=== PATIENT | male | born 1975 | race Caucasian/White ===

== ENCOUNTER 2018-11-28 05:37 | Day surgery (SDC) | payer OTHER ==
[~2018-11-28 05:37] MED LIST: CLINDAMYCIN 900 MG/D5W RTU 900 MG/50 ML RTUPB IV PRN; LACTATED RINGERS 1000 ML IV PRN; LIDOCAINE 0.5% INJ-PF (5 MG/ML) 50 ML SDV SUBCUT PRN
[2018-11-28] MEDS ORDERED: CLINDAMYCIN 900 MG/D5W RTU 900 MG/50 ML RTUPB IV ONE (06:03)
[2018-11-28] MEDS ORDERED: LIDOCAINE 2% INJ-PF (20 MG/ML) 10 ML AMPUL ONE (06:54)
[2018-11-28] MEDS ORDERED: HYDROMORPHONE HCL INJ/PF 2 MG/ML AMPULE ONE ×2 (06:54→17:58)
[2018-11-28] MEDS ORDERED: FENTANYL CITRATE INJ/PF 100 MCG/2 ML AMPUL ONE (06:54)
[2018-11-28] MEDS ORDERED: ACETAMINOPHEN 1,000 MG/100 ML RTUPB IV ONE (06:55)
[2018-11-28] MEDS ORDERED: MIDAZOLAM 2 MG/2 ML INJ ONE (06:55)
[2018-11-28] MEDS ORDERED: PROPOFOL INJ 200 MG/20 ML VIAL IV ONE (06:55)
[2018-11-28] MEDS ORDERED: MINERAL OIL (STERILE) 10 ML VIAL ONE (07:14)
[2018-11-28] MEDS ORDERED: BALANCED SALT IRRIG SOLN COMB2 15 ML BOTTLE ONE (07:14)
[2018-11-28] MEDS ORDERED: TOBRAMYCIN SULFATE/DEXAMETH OPH OINTMENT 3.5 GM ONE ×2 (07:15→15:32)
[2018-11-28] MEDS ORDERED: BUPIVACAINE HCL 0.5%-EPI 1:200000 INJ/PF 30 ML VIAL ONE (07:15)
[2018-11-28] MEDS ORDERED: BUPIVACAINE HCL 0.5%/EPI 1:200000 INJ 1.8 ML CARTRIDGE ONE (07:15)
[2018-11-28] MEDS ORDERED: OXYMETAZOLINE HCL 0.05% NASAL SPRAY 15 ML BOTTLE ONE (07:18)
[2018-11-28] MEDS ORDERED: ONDANSETRON HCL INJ/PF 4 MG/2 ML SDV ONE (08:15)
[2018-11-28] MEDS ORDERED: ROCURONIUM BROMIDE INJ 50 MG/5 ML VIAL IV ONE (08:15)
[2018-11-28] MEDS ORDERED: DEXAMETHASONE SOD PHOSPHATE INJ 4 MG/1 ML VIAL ONE (08:15)
[2018-11-28] MEDS ORDERED: SUCCINYLCHOLINE CHLORIDE INJ 200 MG/10 ML VIAL ONE (08:15)
[2018-11-28] MEDS ORDERED: FENTANYL CITRATE INJ/PF 100 MCG/2 ML AMPUL IV PRN ×3 (09:40)
[2018-11-28] MEDS ORDERED: PROMETHAZINE HCL INJ 25 MG/1 ML VIAL IV PRN ×2 (09:40→19:50)
[2018-11-28] MEDS ORDERED: MORPHINE SULFATE 10 MG/ML INJ IV PRN ×2 (09:40→19:48)
[2018-11-28] MEDS ORDERED: MEPERIDINE HCL/PF INJ 25 MG/1 ML DISP.SYRIN IV PRN (09:40)
[2018-11-28] MEDS ORDERED: DIPHENHYDRAMINE HCL 50 MG/ML VIAL IV PRN (09:40)
[2018-11-28] MEDS ORDERED: BACITRACIN ZINC OINTMENT 15 GM ONE (13:31)
[2018-11-28] MEDS ORDERED: METOCLOPRAMIDE HCL INJ/PF 10 MG/2 ML SDV ONE (16:22)
[2018-11-28] MEDS ORDERED: RINGERS SOLUTION,LACTATED 1,000 ML IV PRN (17:09)
[2018-11-28] MEDS ORDERED: PROMETHAZINE HCL INJ 25 MG/1 ML VIAL ONE (17:30)
[2018-11-28] MEDS ORDERED: OXYCODONE-ACETAMINOPHEN 5-325 MG TABLET PO PRN (17:33)
[2018-11-28] MEDS ORDERED: ONDANSETRON HCL INJ/PF 4 MG/2 ML SDV IV PRN ×2 (17:33→19:49)
[2018-11-28] MEDS ORDERED: OXYCODONE-ACETAMINOPHEN 5-325 MG TABLET ONE (17:49)
[2018-11-28] MEDS: OXYCODONE-ACETAMINOPHEN 5-325 MG TABLET PO PRN ×2 (19:55→23:55)
--- NOTE | 2018-11-28 22:02 | OPERATIVE REPORT E ---
Operative Report NAME: XAVIER SORIANO : 1975 AGE: 43Y DATE OF SURGERY: 11/28/2018 ROOM: 212 PREOPERATIVE DIAGNOSES: 1. CHRONIC RHINOSINUSITIS. 2. SINONASAL POLYP DISEASE. 3. NASAL SEPTAL DEVIATION, ACQUIRED. 4. NASAL DEFORMITIES, ACQUIRED. 5. BILATERAL NASAL VALVE COLLAPSE. 6. CHRONIC NASAL DYSPNEA. 7. BILATERAL INFERIOR TURBINATE HYPERTROPHY. 8. BILATERAL MIDDLE TURBINATE HYPERTROPHY. 9. NASAL SEPTAL SPUR. POSTOPERATIVE DIAGNOSES: 1. CHRONIC RHINOSINUSITIS. 2. SINONASAL POLYP DISEASE. 3. NASAL SEPTAL DEVIATION, ACQUIRED. 4. NASAL DEFORMITIES, ACQUIRED. 5. BILATERAL NASAL VALVE COLLAPSE. 6. CHRONIC NASAL DYSPNEA. 7. BILATERAL INFERIOR TURBINATE HYPERTROPHY. 8. BILATERAL MIDDLE TURBINATE HYPERTROPHY. 9. NASAL SEPTAL SPUR. OPERATION: 1. IMAGE GUIDANCE FUNCTIONAL ENDOSCOPIC SINUS SURGERY CONSISTING OF THE FOLLOWIN. BILATERAL MAXILLARY ANTROSTOMIES VIA BILATERAL TRANSNASAL RIGID SURGICAL ENDOSCOPY. 3. BILATERAL TOTAL ETHMOIDECTOMIES VIA BILATERAL TRANSNASAL RIGID SURGICAL ENDOSCOPY, WITH TISSUE REMOVAL. 4. BILATERAL FRONTAL SINUS SINUSOTOMIES VIA BILATERAL TRANSNASAL RIGID SURGICAL ENDOSCOPY, WITH TISSUE REMOVAL. 5. ENDONASAL FUNCTIONAL SEPTORHINOPLASTY WITH CARTILAGE GRAFTING OF THE UPPER AND LOWER CARTILAGES AND WITH NASAL TIP COMPLEX STABILIZATION. 6. BILATERAL INFERIOR TURBINATE REDUCTION USING AN INTRAMURAL CAUTERY WITH OUTFRACTURING. 7. BILATERAL MIDDLE TURBINATE REDUCTION. 8. BILATERAL FRONTAL SINUS RECESS PLACEMENT OF PROPEL CONTOUR STEROID-ELUTING STENTS. SURGEON: MISHA SALDAÑA D.O. ANESTHESIA: General endotracheal tube. ANESTHESIA STAFF: ANA Sena and ANA Geronimo ESTIMATED BLOOD LOSS: 50 mL FLUIDS: 1250 mL URINE OUTPUT: 1050 mL COMPLICATIONS: None. DRAINS: None. SPONGE COUNT: Verified. NEEDLE COUNT: Verified. MATERIALS FORWARDED SPECIMEN: 1. Bilateral ethmoid sinus tissue for rule out polyp disease. 2. Bilateral frontal sinus tissue for rule out sinus polyp disease. FINDINGS: 1. Nasal septal deviation involving bone and cartilage, and there was a large right nasal septal spur. 2. Severe bilateral nasal valve collapse. 3. Caudal septal cartilage margin with displacement into the left nasal vestibule with displacement of the left medial crura and medial crural footplate into the left nasal vestibule. 4. Dorsal hump involving bone and cartilage. 5. Inadequate nasal tip complex support with a bifid nasal tip area. 6. There was extensive sinonasal polyp disease noted, especially in the maxillary, ethmoid, and frontal sinus recess areas. 7. There was no sinonasal discharge noted. 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 The patient had been referred for and he complained of a 10+ year history of chronic rhinosinusitis symptoms. The patient is also with history of worsening nasal dyspnea with very difficult nasal airflow over the years. The patient had undergone CT sinus imaging with active sinus disease and polyp disease noted. The patient underwent clinic flexible endoscopy and extensive nasal evaluation. The patient was noted to be with severe nasal valve collapse with near complete collapse of his nasal passages. There was extensive discussion with the patient with regard to both functional septorhinoplasty and image guidance functional endoscopic sinus surgery, and the patient desired to undergo the recommended surgery under a singular anesthetic versus staging the surgeries, as he also only wanted to have to go through one recovery as well. The procedures and all of the risks and complications were discussed in detail with the patient. He voiced an understanding of the described surgical plan, agreed to proceed, and consent was obtained. PROCEDURE: The patient was taken to the main operating room and was placed on the operating room table in the supine position. Appropriate monitors were placed. Using mask and IV access, general anesthesia was induced. The patient was next transorally intubated without difficulty. The patient was then positioned and prepped for sinus and nasal surgery. The patient underwent a nasal examination with injection of local anesthetic with epinephrine. There were two Afrin-soaked neuro patties placed per nasal passage. At this point, the patient was prepped and draped in a sterile fashion for sinus and nasal surgery. The Fusion image guidance system was set up and tested appropriately before beginning the case. The Afrin-soaked neuro patties were removed and the patient underwent a left hemitransfixion incision with elevation of the mucoperichondrial and periosteal flaps without difficulty. The bony cartilaginous junction was identified and divided. The most deviated portions of septal cartilage and bone were removed. At this point, the caudal septal margin cartilage prominence was trimmed. There was a precise pocket created between the medial crural footplates. There was soft tissue that was debulked from between the medial crura and the medial crural footplates. There was a greater than 1.5 x 1.5 cm cartilaginous *------* that was preserved. At this point, the turbinate bipolar wand was used to make two passes in each inferior turbinate. Next, a Reyna elevator was used to outfracture each inferior turbinate. At this point, the image guidance functional endoscopic sinus surgery portion of the case was completed as follows. There was Marcaine with epinephrine that was used for intranasal injections in the area of the middle turbinate root. Sinus surgery was done with bilateral transnasal rigid surgical endoscopy and image guidance. There were also multiple sinus surgical instruments in the microdebrider system at a setting of 3000 RPM used throughout this portion of the case. The anterior portion of the middle turbinates was debulked. Next, the uncinate process was mobilized on each side and the maxillary antrostomies were performed without difficulty. The total ethmoidectomies were completed without difficulty, and tissue was sent for permanent pathology evaluation to rule out polyp disease. At this point, the frontal sinus balloon system was introduced and brought into position in the frontal sinus recess distribution and inflated to 12 atmospheres at multiple locations on each side. However, due to the extent of ethmoid polyp disease, there was concern for obstructing tissue and scarring taking place. Therefore, an intraoperative decision was made to perform bilateral frontal sinusotomies with surgical instrumentation. There were widely patent openings noted at this point bilaterally. This was followed by placement of one Propel Contour frontal sinus stent per side. Once complete, the sinus surgical instrumentation was withdrawn. At this point, the endonasal septorhinoplasty portion of the case was completed in the following manner. There were modified marginal incisions performed bilateral with elevation of the skin/soft tissue complex. There were precise pockets created for the extended alar fat grafts. The fat grafts were fashioned out of the previously harvested cartilage. Once complete, they were set in place. There were also endonasal dresser tender grafts placed, one per side. There was also dorsal contour work performed with dorsal rasping. Once complete, the alar fat grafts were fixed in place with 5-0 Prolene suture that was [id number] using bolsters overlying the internal and external nasal tissue. Once complete, all incisions were reapproximated with 5-0 Chromic suture. At this point, there was an incision made over each medial crural footplate. Next, a 5-0 Prolene suture was used as a [id number] base stabilizing suture. These incisions were reapproximated with Chromic suture as well. The patient next had one Merocel nasal pack placed per side. These were secured at the caudal aspect with 4-0 Prolene suture. At this point, the patient's nose was cleaned and dried, followed by placement of Mastisol and Steri-Strips. The patient was then returned to the anesthesia staff and was allowed to emerge from general anesthesia. The patient was extubated in the main operating room and was then transported to the post anesthesia recovery unit in stable condition. There were no complications. DICTATING PHYSICIAN: MISHA SALDAÑA D.O. [id number] PHY#: [id number] ID: [id number] JOB#: [id number] ACCT: [id number] cc:MISHA SALDAÑA D.O. >
[2018-11-29] MEDS: OXYCODONE-ACETAMINOPHEN 5-325 MG TABLET PO PRN ×2 (04:55→08:58)
[2018-11-29 08:58] VITALS: BP 127/84
== END 2018-11-29 09:23 | disposition home or self-care (01) ==
LOC: OROUT 05:37 → 2N 18:58 → OROUT 11-29 09:23 → 2N 11-29 09:23
PROVIDERS: ATTEND Otolaryngology
DX: J34.2 Deviated nasal septum (principal); M95.0 Acquired deformity of nose; R06.09 Other forms of dyspnea; J34.3 Hypertrophy of nasal turbinates; J32.8 Other chronic sinusitis; J33.8 Other polyp of sinus; J34.89 Other specified disorders of nose and nasal sinuses; J30.9 Allergic rhinitis, unspecified; R04.0 Epistaxis; Z88.0 Allergy status to penicillin
CPT/HCPCS: 88305 ×2; 31256; 31255; 31276; 30420; 20912; 30140; J2250; J3490 ×9; J1100; J3010; J2765; J1170; J2550; J0330; J2405; J7120; J2704; J0131; 160